=== PATIENT | male | born 1995 | race Caucasian/White ===

== ENCOUNTER → 2022-04-07 | Outpatient (CLI) | payer OTHER ==
--- NOTE | 2022-04-08 14:00 | RAD ---
XR OS CALCIS_LT 2+ VIEWS 04/07/2022 5:32 PM INDICATION: Hurt heel at work. Pain COMPARISON: None available. TECHNIQUE: 2 views of the calcaneus are provided. FINDINGS/ IMPRESSION: There is no acute fracture or dislocation. Joint spaces are maintained. Bone mineralization is within normal limits. Regional soft tissues are within normal limits. There is no soft tissue gas or osseou s erosion. No radiopaque foreign body. Tiny plantar calcaneal enthesophyte. Electronically signed by: Michelle Land MD (04/08/2022 8:13 AM) [id number]
== END ==
LOC: RAD 17:14
PROVIDERS: ATTEND Nurse Practitioner Family
DX: S99.921A Unspecified injury of right foot, initial encounter (principal); M77.31 Calcaneal spur, right foot; X58.XXXA Exposure to other specified factors, initial encounter; Y93.89 Activity, other specified; Y92.89 Other specified places as the place of occurrence of the external cause; Y99.8 Other external cause status
CPT/HCPCS: 73650